=== PATIENT | female | born 1990 | race Caucasian/White ===

== ENCOUNTER 2025-03-22 07:05 | Emergency (ER) | payer MEDICAID ==
[~2025-03-22] VITALS: Ht 167.6 cm; Wt 77.1 kg
[2025-03-22] MEDS: IV NS 0.9% 1,000 ML BAG IV ONE (07:52)
[2025-03-22 08:04] LABS: PLATELET COUNT (AUTO) 209 K/uL (150-450); RED BLOOD CELL COUNT(AUTO) 4.41 MIL/uL (4.0-5.2); RED CELL DISTRIBUTION WIDTH 15.3 % (11.5-15.0); WHITE BLOOD COUNT (AUTO) 12.4 K/uL (4.3-11.0)
[2025-03-22 08:09] LABS: ASPARTATE AMINOTRANSFERASE 22.0 U/L (15-37); CALCIUM, SERUM 8.5 mg/dL (8.5-10.1); CREATININE 0.9 mg/dL (0.6-1.3); SODIUM SERUM 139.0 mmol/L (136-145); TOTAL PROTEIN, SERUM 7.4 g/dL (6.4-8.2); UREA NITROGEN, BLOOD 9.0 mg/dL (7-18)
[2025-03-22 09:25] VITALS: BP 116/86; TEMP 98.5; O2SAT 98
== END 2025-03-22 09:27 | disposition home or self-care (01) ==
LOC: ER 07:08
DX: G40.909 Epilepsy, unspecified, not intractable, without status epilepticus (principal); R10.20 Pelvic and perineal pain unspecified side; Z91.199 Patient's noncompliance with other medical treatment and regimen due to unspecified reason
CPT/HCPCS: 99285; 96360; 85025; 80048; 80076; 36415; 84702; J7030